=== PATIENT | female | born 2005 | race Caucasian/White ===

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

== ENCOUNTER 2025-04-18 14:05 | Emergency (ER) | payer MEDICAID, SELFPAY ==
[2025-04-18 14:20] VITALS: BP 123/81; PULSE 113; RESP 20; TEMP 36.7; O2SAT 100
--- NOTE | 2025-04-18 14:47 | W.ED.GENAD ---
Discharge Plan Disposition Patient Disposition: Home Condition: Stable Discharge Details Clinical Impression: Vaginal discharge, Bacterial vaginosis Primary Care Provider: Sonia Campos ED Provider: Mirta Amin Home Meds and New Rx's Prescriptions: New metronidazole 500 mg tablet 500 mg PO BID 7 Days Qty: 14 0RF No Action hydroxyzine HCl 25 mg tablet 25 mg PO Q6H PRN (Reason: anxiety) Qty: 60 3RF ondansetron 4 mg tablet,disintegrating 4 mg PO Q8H PRN (Reason: nausea and vomiting) Qty: 60 3RF triamcinolone acetonide 0.1 % cream 1 applic topical BID Qty: 80 0RF nortriptyline 25 mg capsule 25 mg PO QHS Qty: 60 0RF Rx Instructions: may take up to 50 mg po HS diazepam 5 mg tablet 5 mg PO QHS PRN (Reason: sleep) Qty: 10 0RF Rx Instructions: use sparingly Discharge Instructions Instructions: Bacterial Vaginosis ED Additional Instructions: Your swab indicates recurrent bacterial vaginosis. Please start Flagyl twice daily as prescribed. Do not take alcohol while on this medication. Given your recurrent symptoms, you could also start vaginal suppository boric acid which is available [id number]. Please follow-up with your women's wellness provider or PCP for reevaluation of any ongoing symptoms. Discharge Data Discharge Date/Time-TO BE ENTERED AT DEPARTURE: 04/18/25 16:11 HPI General Date/Time Provider Initiated Documentation: 04/18/25 14:07. Limitations to Documentation: no limitations. Information obtained by: patient. HPI Narrative: 19-year-old female without significant past medical history presents for evaluation of vaginal discharge. She reports that she has been having symptoms of BV for the last 2 weeks but has not been able to get into see her doctor. She reports that her discharge has gotten worse over the last 2 days. She is now having dysuria. She states that she is sexually active with 1 male partner. She does use condoms with every encounter. Reports that her vaginal itching symptoms seem to get worse after intercourse. She denies any fever or chills, vomiting. Related Data Home Medications ?Medication ?Instructions ?Recorded ?Confirmed triamcinolone acetonide 0.1 % 1 applic topical BID #80 grams 01/16/24 05/24/25 topical cream hydroxyzine HCl 25 mg tablet 25 mg PO Q6H PRN anxiety #60 tabs 10/17/24 04/18/25 ondansetron 4 mg disintegrating 4 mg PO Q8H PRN nausea and 10/17/24 04/18/25 tablet vomiting #60 tabs diazepam 5 mg tablet 5 mg PO QHS PRN sleep #10 tabs 12/17/24 04/18/25 nortriptyline 25 mg capsule 25 mg PO QHS #60 caps 12/17/24 04/18/25 metronidazole 500 mg tablet 500 mg PO BID 7 days #14 tabs 04/18/25 Previous Rx's ?Medication ?Instructions ?Recorded triamcinolone acetonide 0.1 % 1 applic topical BID #80 grams 12/11/23 topical cream hydroxyzine HCl 25 mg tablet 25 mg PO Q6H PRN anxiety #60 tabs 10/17/24 ondansetron 4 mg disintegrating 4 mg PO Q8H PRN nausea and 10/17/24 tablet vomiting #60 tabs diazepam 5 mg tablet 5 mg PO QHS PRN sleep #10 tabs 12/17/24 nortriptyline 25 mg capsule 25 mg PO QHS #60 caps 12/17/24 metronidazole 500 mg tablet 500 mg PO BID 7 days #14 tabs 04/18/25 Allergies Allergy/AdvReac Type Severity Reaction Status Date / Time ibuprofen Allergy Mild rash Verified 04/18/25 14:23 gluten Allergy vomiting Verified 04/18/25 14:23 tioconazole (From Monistat 1 AdvReac Mild Other (See Verified 04/18/25 14:24 (tioconazole)) Comment) escitalopram (From Lexapro) AdvReac Head felt Verified 04/18/25 14:23 foggy and numb 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 Exam Narrative Exam Narrative: Review of Systems: All systems reviewed & are unremarkable except as noted in HPI and below Well-developed, no acute distress NCAT Unlabored respiratory effort Nondistended abdomen , soft non tender gu exam deferred Course Vital Signs Vital signs: Vital Signs Temperature 36.7 C 04/18/25 14:20 Pulse 113 H 04/18/25 14:20 Respiratory Rate 20 04/18/25 14:20 Blood Pressure 123/81 04/18/25 14:20 Pulse Oximetry 100 04/18/25 14:20 Temperature 36.7 C 04/18/25 14:20 Pulse 113 H 04/18/25 14:20 Respiratory Rate 20 04/18/25 14:20 Blood Pressure 123/81 04/18/25 14:20 Pulse Oximetry 100 04/18/25 14:20 Oxygen Delivery Method Room Air 04/18/25 14:20 Oxygen Flow Rate 0 04/18/25 14:20 Pain Level 3 04/18/25 14:20 Lab/Test Results Lab/Test Results: POC- Test(urine) Negative Medical Decision Making Urgent evaluation of vaginal discharge. Initial differential includes BV, cystitis, cervicitis. Patient is sexually active with 1 partner no change recently. She is not . Will check for urinary tract infection as well as vaginal path. Urinalysis without signs of infection. Vaginal path positive for BV. Prescription written for Flagyl. Recommend follow-up with women's wellness Quality:SDOH Health Related Social Needs: No Data to Display PFSH All Active Problems (Updated 04/18/25 @ 16:00 by Mirta Amin MD) Bacterial vaginosis (Acute) Vaginal discharge (Acute) Temporomandibular disorder (Acute) Headache (Acute) Left lower quadrant pain (Acute) Generalized anxiety disorder with panic attacks (Chronic) Major depressive disorder, recurrent (Chronic) Celiac disease (Chronic) Medical History Vaginal discharge Surgical History History of esophagogastroduodenoscopy (EGD) (01/27/10) S/P appendectomy (01/28/17) Family History Mother GERD (gastroesophageal reflux disease) Diabetes Hypertension Hyperlipidemia Depression Father Celiac disease GERD (gastroesophageal reflux disease) Sister Depression Sister No problems noted. Brother No problems noted. Brother Depression Substance use disorder Maternal Grandfather Depression Diabetes Heart disease Hyperlipidemia Maternal Grandmother Asthma Depression Diabetes Hyperlipidemia Paternal Grandfather No problems noted. Paternal Grandmother Depression Social History Smoking/Tobacco Use Status: Current every day Tobacco Type: e-cigarettes Tobacco: How many years used: 2 Quit status: considering quitting Smoking risk assessment performed?: Yes Alcohol Intake: current Alcohol Intake frequency: holidays/special occasions only Alcohol type: wine Drug use: Daily Substance use type: marijuana Adopted: No Caregiver/Support person: Yes Household members: family and other Details: Mom and Dad, and siblings Housing: house Communication Needs: None Education Level: high school Details: sophomore Do you need help understanding health information?: Rarely Pets and animals: Yes Pets and animals: dog(s) Sexually active: Yes Do you think of yourself as: straight/heterosexual Current gender identity: female What is your relationship status?: never How often do you talk on the phone with friends or family?: three or more times per week How often do you get together with friends or relatives?: three or more times per week Do you belong to any clubs or organized social groups?: no Panel score (0-1 are the most socially isolated patients): 1 What type of physical activity do you participate in: walking and running Duration: < 15 minutes/day Frequency: 3-4 times per week Cindy/Latter Day: Non sabianism Seatbelt use: always Helmet use: Yes Helmet use: sometimes Drive intox or ride w/intox steam train driver: No Firearms in home: No Do you feel safe at home: Yes Victim of physical abuse: No Victim of emotional abuse: Yes Victim of sexual abuse: No Would you like helpful sources: No Female Reproductive History Menstrual Age of Menarche: 12 Duration of menses: 6-7 days control method: none History History 0 Para Hx # Term Pregnancies Multiple births Hx # Pregnancies Ectopic pregnancies AB induced Hx Number of Living Children AB spontaneous
[2025-04-18 14:55] LABS: Bilirubin Negative (Negative); Blood Negative (Negative); Clarity Clear (Clear); Glucose Negative (Negative); Ketones Negative (Negative); Leukocyte Esterase Trace (Negative); Nitrite Negative (Negative); Specific Gravity >= 1.030 (1.005-1.025); Urobilinogen 0.2 mg/dL (Up to 0.2); pH 5.5 (5-8)
[2025-04-18 15:18] LABS: Bacteria Negative HPF (Negative); C & S Indicated? No; Casts Negative LPF (Negative); Crystals Negative HPF (Negative); Epithelial Cells Negative HPF (Negative); Mucus Negative (Negative); Other Cells Negative (Negative); RBC Negative HPF (0-2); WBC Negative HPF (0-5)
[2025-04-18 16:06] VITALS: BP 125/75; PULSE 99; RESP 20; O2SAT 100
== END 2025-04-18 16:11 | disposition home or self-care (01) ==
PROVIDERS: Emergency Medicine; Emergency Provider Emergency Medicine; PCP Nurse Practitioner Family
DX: N76.0 Acute vaginitis (principal); N89.8 Other specified noninflammatory disorders of vagina
CPT/HCPCS: 99283 ×2; 81025; 81003; 81015; 87480; 87510; 87660